=== PATIENT | male | born 1990 | race Caucasian/White ===

== ENCOUNTER 2018-07-26 13:02 | Emergency (ER) | payer SELFPAY ==
[~2018-07-26] VITALS: Ht 188 cm; Wt 75.0 kg
[2018-07-26 13:09] VITALS: Ht 188 cm; Wt 75.0 kg
[2018-07-26 14:25] VITALS: BP 112/73
== END 2018-07-26 14:25 | disposition home or self-care (01) ==
LOC: ED 13:02
DX: T15.01XA Foreign body in cornea, right eye, initial encounter (principal); Z90.89 Acquired absence of other organs; W45.8XXA Other foreign body or object entering through skin, initial encounter; Y93.89 Activity, other specified; Y92.89 Other specified places as the place of occurrence of the external cause; Y99.8 Other external cause status